=== PATIENT | female | born 1935 | race African-American/Black ===

== ENCOUNTER → 2018-02-02 | Outpatient (CLI) | payer MEDICARE, OTHER ==
[~2018-02-02] MED LIST: ALKA SELTZER; AMLO10TA80 PO; ASPI-1158 PO; ATEN50TA PO; ATORVASTATIN; DIPH-3 PO; LOSA50TA20; METF-416; METF500T; PANT40TA4 PO; SIMV20TA2; TYLENOL
== END | disposition home or self-care (01) ==
LOC: US 09:26
PROVIDERS: ATTEND Internal Medicine Nephrology
DX: I12.9 Hypertensive chronic kidney disease with stage 1 through stage 4 chronic kidney disease, or unspecified chronic kidney disease (principal); E11.22 Type 2 diabetes mellitus with diabetic chronic kidney disease; N18.9 Chronic kidney disease, unspecified
CPT/HCPCS: 76770

== ENCOUNTER 2018-02-21 22:41 | Emergency (ER) | payer MEDICARE, OTHER ==
[~2018-02-21] VITALS: Ht 165.1 cm; Wt 75.0 kg
[2018-02-22] MEDS ORDERED: ACETAMINOPHEN 325MG TABLET PO STA (02:48)
[2018-02-22 03:22] LABS: HEMATOCRIT. 37.7 % (36.0-48.0); HEMOGLOBIN. 11.6 g/dL (12.0-16.0); MEAN CORPUSCULAR HEMOGLOBIN 23.7 pg (28.0-32.0); MEAN CORPUSCULAR VOLUME 77.3 fL (81.0-99.0); PLATELET 205 x1000/uL (130-400); RED BLOOD CELL COUNT 4.88 mill/uL (4.2-5.4); RED CELL DISTRIBUTION WIDTH 14.2 % (11.6-14.6)
[2018-02-22 03:28] LABS: PROTHROMBIN TIME 10.2 sec (9.1-11.1)
[2018-02-22 03:35] LABS: CHLORIDE 104 mEq/L (98-107)
[2018-02-22 04:03] LABS: PLATELET ESTIMATE NORMAL
[2018-02-22 04:31] LABS: CLARITY URINE CLEAR (CLEAR); COLOR URINE YELLOW (YELLOW); KETONES URINE NEGATIVE (NEGATIVE); LEUKOCYTE ESTERASE URINE NEGATIVE (NEGATIVE); NITRITE URINE NEGATIVE (NEGATIVE); OCCULT BLOOD URINE NEGATIVE (NEGATIVE); PH URINE 8.5 (4.5-8.0); PROTEIN URINE NEGATIVE (NEGATIVE); SPECIFIC GRAVITY URINE 1.011 (1.005-1.030)
[2018-02-22 06:32] VITALS: BP 163/61
== END 2018-02-22 06:36 | disposition home or self-care (01) ==
LOC: ER 22:41
DX: B34.9 Viral infection, unspecified (principal); D72.819 Decreased white blood cell count, unspecified; D50.9 Iron deficiency anemia, unspecified; E11.649 Type 2 diabetes mellitus with hypoglycemia without coma; I10 Essential (primary) hypertension; Z79.84 Long term (current) use of oral hypoglycemic drugs; Z79.82 Long term (current) use of aspirin
CPT/HCPCS: 36415; 71045; 83605; 83880; 84145; 84484; 87804; 93005; 99284